=== PATIENT | female | born 1980 | race Caucasian/White ===

== ENCOUNTER → 2017-12-13 14:30 | Outpatient (CLI) | payer OTHER, SELFPAY ==
[2017-12-15 14:38] LABS: HPV Reflexed? NOT INDICATED
== END ==
PROVIDERS: Visit Provider Obstetrics & Gynecology
DX: Z12.4 Encounter for screening for malignant neoplasm of cervix (principal)
CPT/HCPCS: 88175; G0145

== ENCOUNTER → 2018-02-13 09:09 | Outpatient (CLI) | payer OTHER, SELFPAY ==
[2018-01-10 04:06] LABS: Red Blood Count 4.98 M/mm3 (4.2-5.4)
[2018-01-10 04:07] LABS: Hematocrit 37.9 % (37-47); Hemoglobin 11.7 g/dl (12.0-15.0); Mean Corp Hgb Conc 30.9 g/gl (32-36); Mean Corpuscular Hgb 23.5 pg (27.0-32.0); Mean Corpuscular Volume 76.1 fL (81-99); Mean Platelet Vol. 10.5 fl (6.2-12.0); Platelet Count 332 K/mm3 (150-450); RBC Distribution Width CV 15.6 % (11.6-14.6); RBC Distribution Width SD 43.7 fl (35.1-43.9); Scan Indicated on CBC? Y/N NO
[2018-01-10 04:08] LABS: White Blood Count 5.8 K/mm3 (4.4-11.0)
[2018-01-10 06:16] LABS: Creatinine, Serum 0.71 mg/dL (0.55-1.02); EST Glomerular Filtration Rate 99 mL/min (>60); Est Glom Filt Rate - Afr Amer 120 mL/min (>60)
[2018-01-10 06:18] LABS: Pregnancy, Serum, hCG Quali. NEGATIVE Negative (0-9 Nonpreg)
[2018-01-10 06:26] LABS: Prothrombin Time (Protime)PT. 12.7 SECONDS (11.7-14.9)
== END ==
PROVIDERS: Family Provider Family Medicine; PCP Family Medicine; Visit Provider Obstetrics & Gynecology
DX: Z01.818 Encounter for other preprocedural examination (principal)
CPT/HCPCS: 36415; 82565; 84703; 85027; 85610; 85730; 86850; 86900

== ENCOUNTER 2021-09-21 07:25 | Day surgery (SDC) | payer OTHER, SELFPAY ==
--- NOTE | 2021-09-16 09:19 | EKG12_ITS ---
Test Reason : PRE OP Blood Pressure : / mmHG Vent. Rate : 094 BPM Atrial Rate : 094 BPM P-R Int : 136 ms QRS Dur : 090 ms QT Int : 338 ms P-R-T Axes : 038 062 039 degrees QTc Int : 422 ms Normal sinus rhythm Normal ECG Confirmed by ROSSY LEYVA, MICHELE ([id number]), film editor supervisor ANDRÉS ESPINAL ([id number]) on 09/17/2021 9:10:03 AM Referred By: Omar Danielle Confirmed By:MICHELE BLAIR MD
[2021-09-16 10:32] LABS: Hematocrit 32.9 % (37-47); Hemoglobin 9.1 g/dL (12.0-15.0); Mean Corp Hgb Conc 27.7 g/dL (32-36); Mean Corpuscular Hgb 16.9 pg (27.0-32.0); Mean Corpuscular Volume 61.3 fL (81-99); Mean Platelet Vol. 10.2 fl (6.2-12.0); POSITIVE MORPHOLOGY YES; Platelet Count 362 K/mm3 (150-450); RBC Distribution Width CV 20.4 % (11.6-14.6); RBC Distribution Width SD 42.1 fl (35.1-43.9); Red Blood Count 5.37 M/mm3 (4.2-5.4); White Blood Count 7.5 K/mm3 (4.4-11.0)
[2021-09-16 10:40] LABS: Partial Thromboplast Time 25.7 Seconds (24.1-36.2); Prothrombin Time (Protime)PT. 12.2 SECONDS (11.7-14.9)
[2021-09-16 11:04] LABS: Scan Indicated on CBC? Y/N YES- FLAGS NOTED
[2021-09-16 11:05] LABS: Differential Comment SCANNED
[2021-09-16 11:32] LABS: Internal QC Validated? YES +Cl - CLEAR BKGD; Pregnancy, Serum, hCG Quali. NEGATIVE Negative
[2021-09-16 11:40] LABS: Thyroid Stim Hormone (TSH) 0.96 uIU/mL (0.358-3.74)
--- NOTE | 2021-09-20 17:25 | HP.PCM_ITS ---
History and Physical Date of Admission: 09/21/21 Surgical History and Physical Berenice Wang, a 41 year old female 3 0 1 0 3, presents for L/S Nacho salpingectomy, D and C, Dx H/S, HTA on September 21, 2020 . -- Desires Permanent Sterilization, Menorrhagia -- She has considered permanent sterilization for quite some time. Heavy menses. EMBx OK and u/s shows no polyps or fibroids. MEDICATIONS HISTORY: Patient is also takin. Zantac 150 mg tablet, 1 PO BID 2. buspirone 10 mg tablet, One tab at onset of anxiety prn ALLERGIES: morphine, Itching and vomiting, Codeine, Vomiting, Demerol, Vomiting, Codeine, Vomiting, Morphine, Itching and non-specific Infections - Chicken pox Illnesses - ENDOMETRIOSIS Accidents - no injuries of consequence Hospitalizations - Childbirth and see surgery Review of Systems: GENERAL - Denies fever, or chills SKIN - Denies skin changes EYES - Denies visual changes EARS - Denies difficulty hearing NOSE - Denies nasal congestion or bleeding MOUTH - Denies sore throat or difficulty swallowing NECK - Denies pain or swelling RESPIRATORY - Denies shortness of breath or wheezing CARDIOVASCULAR - Denies palpitations or chest pain GASTROINTESTINAL - Denies nausea, vomiting, diarrhea, constipation GENITOURINARY - Denies dysuria, frequency of urination, incontinence of urine MUSCULOSKELETAL - Denies joint or muscle pain NEUROLOGICAL - Denies localized numbness or weakness PSYCHIATRIC - Denies depression or anxiety ENDOCRINE - Denies heat or cold intolerance, weight loss or gain HEMATO-IMMUNOLOGIC - Denies excesive bleeding with cuts SOCIAL HISTORY: Alcohol Use - denies drinking Smoking - 2-4 cigarettes daily (ATQ) Diet - balanced Diet Lifestyle - moderate stress lifestyle and Exercise - minimal Seat Belt Use - always Employer - [place] [employer] Job Description - [place] [employer] Illicit Drug Use - uses marijuana Sexual Activity - Spouse-Sig Other Name - Margot Wang Spouse-Sig Other Occupation - [employer] Spouse-Sig Other Phone No - [phone] Children Name(s) - Adriana Stapleton, Gissel Wang, Jovoncody Quesada, Step daughter-Keisha Wang Control - Prior Tubal FAMILY HISTORY: Family history of DM II. Paternal history of PGM--Ovarian CA. Mother: mini strokes, hypercholesterolemia. MENSTRUAL HISTORY: LMP Known?- DefiniteAmount/Duration - 5 days, Regularity - Regular, Frequency - monthly days, LMP - 08/21/21, Age Onset Menarche - 12 PAST PREGNANCIES: Total Pregnancies - 4; Full Term Pregnancies - 3; Premature - 0; Abortions, Induced - 0; Abortions, Spontaneous - 1; Ectopics - 0; Multiple Births - 0; Living Children - 3 SURGICAL HISTORY: 1. Tonsils, age 6 ; - 2. 04/11/2009 ; - Prior 3. 05/11/2006 Primary C/S ; - Elevated BP 4. 03/03/2011 ; Omar Danielle M.D. - Prior , BTO PHYSICAL EXAM BP- 130/90 Sitting, Left arm, large cuff Weight- 199.14778 lbs Height- 63 inch BMI:35.43 CONSTITUTIONAL - NAD, well nourished, and well developed SKIN - No rash, lesions, or ulcers HEENT - Normocephalic, PERRLA, EOMI NECK - No nodes, no nuchal rigidity and thyroid normal size and texture LYMPH NODES - Palpation of lymph nodes in neck and groins within normal limits LUNGS - CTA x2 without wheezes, crackles or rales CARDIAC - Regular rate and rhythm without rubs, murmurs, or gallops BREAST - No dominant masses, no tenderness, no axillary adenopathy, no nipple discharge, no skin changes ABDOMEN - Without hepatosplenomegaly, distention, masses, rebound, or guarding; normal bowel sounds; no hernias EXTREMITIES - No edema or calf tenderness NEUROLOGICAL - Cranial nerves II-XII grossly intact PSYCHIATRIC - A and O to time, place, person, mood and affect External Genitial Vagina - non-tender without lesions Urethra/Urethral Meatus - non-tender Bladder - non-tender Vagina - vaginal aviles are pink and moist without loss of rugae and no evidence of atropy Cervix - without cervical motion tenderness and has normal size and features without evident lesions Uterus - enlarged uterus 8 wks, wt 125-150 g Adnexa - clear without massess or tenderness ASSESSMENT/PLAN: Premenopausal Menorrhagia; Desires Permanent Sterilization Patient desires proceeding with a diagnostic laparoscopy, bilateral salpingectomy to remove Filshie clips as this may be causing some pain, and proceeding with an endometrial ablation. Plan proceeding with a diagnostic laparoscopy, bilateral salpingectomy, diagnostic hysteroscopy, dilation and curettage, hydrothermal ablation. Discussed risk, benefits, and alternatives.
[2021-09-21] VITALS (9 sets, daily range): BP systolic 103–157; BP diastolic 76–85; PULSE 70–95; RESP 14–18; TEMP 36.2–37; O2SAT 89–100; BMI 35.5
--- NOTE | 2021-09-21 | FALS_PTH ---
PATIENT: EDIN MORALES [place] [facility] [id number] AGE/SX: 41/F ROOM: RE09/21/[address]: Dr. Omar Danielle MD : [id number] BED: DIS: 09/21/2021 SPEC #: [id number] RECD: 09/21/21 13:50 STATUS: WILLIAM INFANTE #: [id number] ED: 09/21/21 00:[address]: Omar Danielle DEPT: SURGICAL PATHOLOGY RECD BY: Kimani Anthony ENTERED: 09/21/21 13:51 SP TYPE: FALL TUBES OTHR DR: MD Dr. Keiko Purvis MD Tissues: A - Endometrium, NOS B - Fallopian tube Procedures: Surgery Specimen Level II Surgery Specimen Level IV HEADER OPERATION: Laparoscopic salpingectomy PRE-OP DIAGNOSIS: Sterilization, menorrhagia TISSUE SUBMITTED: A ? Endometrial curettings, B ? Bilateral fallopian tubes MICROSCOPIC DIAGNOSIS A. Endometrial curettings: Secretory endometrium. Fragments of myometrium. Fragments of benign ectocervical epithelium. B. Bilateral fallopian tubes, salpingectomy: Bilateral fallopian tubes, no pathologic diagnosis. A paratubal cyst. RICKEY:[email or web address] 09/22/2021 MICROSCOPIC DESCRIPTION Slides are reviewed. GROSS DESCRIPTION A - Received in fixative is one container labeled with the patient's name and designated endometrial curettings. The specimen consists of multiple fragments of lozoya-pink to hemorrhagic soft tissue that in aggregate measure 5 x 3 x 0.6 cm. The specimen is totally submitted in four cassettes. B - Received in fixative is one container labeled with the patient's name and designated bilateral fallopian tubes. The specimen consists of bilateral fallopian tubes including fimbrial ends. One of the fallopian tubes measure 9 cm in length and 0.5 cm in diameter. The second fallopian tube is received in multiple pieces. The two tubular segments measure in aggregate 7.5 cm in length and 0.5 cm in diameter. Two pieces of fimbrial end are also noted measuring in aggregate 2.5 x 1.5 x 0.5 cm. A paratubal cyst is also noted measuring 0.6 cm in greatest dimension. Two detached Filshie clips are also present in the container which appear intact. The fallopian tubes are not identified as right or left. Sections reveal unremarkable cut surfaces. P[employer] Trimmer sections are submitted in two cassettes as follows: 1 ? intact fallopian tube, 2 ? fallopian tube received in multiple pieces and paratubal cyst. / RICKEY:[email or web address] 09/21/2021 TC:3 CPT: 05128, 90913 x2
[2021-09-21] MEDS: Lactated Ringers 1,000 ML 100 ML IV (07:57)
[2021-09-21 08:07] LABS: Internal QC Validated? YES +Cl - CLEAR BKGD; Pregnancy, Urine Negative Negative
[2021-09-21] MEDS: Ropivacaine 0.5% 30 ML Vial (08:24)
[2021-09-21] MEDS: Cefotetan 2 GM in 0.9% NS 100 ML IV (08:52)
--- NOTE | 2021-09-21 08:57 | OP.PCM_ITS ---
Report of Operation Date of Procedure: 09/21/21 Pre-Operative Diagnosis: Desires Permanent Sterilization; Menorrhagia Post-Operative Diagnosis: Desires Permanent Sterilization; Menorrhagia Surgery/Procedure Performed:: Diagnostic Hysteroscopy, Dilation and Curettage, Hydrothermal Ablation, Diagnostic Laparoscopy, Bilateral Salpingectomy Description of Surgical Findings:: 10 cm endometrial cavity without polyps or fibroids present but copious amount of endometrial tissue present. Cervix high in vagina. Pelvis with evidence of prior tubal ligation with Filshie clips. Uterus is densely adhered to the anterior abdominal wall and omental adhesions just below the umbilicus present which were divided with the Enseal device. Adhesions between the ovaries tubes and pelvic sidewalls. Hysterectomy via robot would be feasible if this were ever necessary. Surgeon: Omar Danielle hospital housekeeper: Erika Stoner Type of Anesthesia: General (Endotracheal) Anesthesiologist: Lyn Walter Specimen's removed: Endometrial curettings, bilateral fallopian tubes and Filshie clips Estimated Blood Loss (mL): Minimal Fluids Replaced: Crystalloid Description of Procedure: Surgeon: Omar Danielle MD, FACOG Indications: This is a 41 year old patient who has the above diagnosis. She had a prior tubal ligation done but is been having some discomfort. She thinks it may be from the Filshie clips. She also has extremely heavy periods and conservative measures have not been helpful. She is aware that this procedure may not relieve the bleeding problems that she has been having and it may not help with pelvic pain issues. All questions were answered to consider the patient well-informed. Procedure: The patient was taken to the operating room where after induction of general anesthesia, she was placed in the dorsolithotomy position and prepped and draped in the usual sterile fashion. The bladder was drained of approximately 50 cc of clear yellow urine with a catheter. Anterior cervix grasped and cervix was dilated to about 17 [place] size. Hysteroscopic hydrothermal ablation (HTA) unit was place in the cervix and the above findings were noted. HTA unit was removed and the uterus was gently curretted removing all contents. An HTA ablation cycle was then carried out at about 90 degrees Centigrade for 10 minutes with virtually no fluid loss during the procedure. After an appropriate cool down the HTA unit was removed with minimal bleeding noted. Attention was turned toward the laparoscopic portion of the procedure after placing a Conn cannula in the cervix. Approximately 20 cc of half percent ropivacaine was injected subumbilically and approximately 10 cm to the right and left of the umbilicus. A 5 mm bladeless trocar was placed subumbilically and intraperitoneal placement confirmed. After CO2 insufflation was complete, a 5 mm bladeless trocar was introduced approximately 10 cm to the right and left of the umbilicus. The above findings were noted. The omental adhesion just below the subumbilical port was divided with the Enseal device. Each fallopian tube was identified to its fimbriated end and an Enseal device was used to divide the mesosalpinx and adhesions to the uterus. Tubes were removed through the left and subumbilical 5 mm port. The peritoneal cavity and upper abdomen were examined and noted to be normal. Photographs were taken. Laparoscopic instruments with as much CO2 gas as possible were removed and incisions were closed with interrupted 4-0 Monocryl suture. Steri-Strips placed across the incision. Vaginal instruments were removed. The patient tolerated the procedure well was taken to recovery room in satisfactory condition and sponge instrument and needle counts were all reportedly correct. Estimated blood loss for the case was minimal. There were no apparent complications of the surgery. Specimens to pathology was bilateral tubes and endometrial curettings Grafts/Implants Used: None Complications None Admit VTE Documentation VTE Present on Admission: Yes VTE Mechan Device Prophylaxis: SCD's
--- NOTE | 2021-09-21 10:34 | PCM.DC ---
Discharge Instructions Diet Discharge Diet: No restrictions Activity Discharge Activity: Return to Normal Activity, May Shower and May Take a Tub Bath May resume sexual activity in: 3 weeks Additional Activity Instructions:: Nothing in the vagina for 3-4 weeks please. Use Ibuprophen 800 mg orally every 8 hours as needed for pain. Can also add Tylenol 1000 mg every 8 hours if needed for pain. If Ibuprophen and Tylenol are not effective then use the Oxycodone but keep in mind it can cause serious constipation issues. Drink lots of water. Call if bleeding more than a pad per hour. Clear to brownish discharge will last for about 3 weeks. It is okay to immediately shower or take a bath. Dressing / Incision Call your doctor if you observe: Fever of 101 or Higher, Inability to urinate, Inability to have a bowel movement and Using more than 1 pad per hour Remove Dressing in: leave until fall off (If the Steri-Strips fall off and it is bothersome it is okay to place a Band-Aid across the small incisions for comfort.) Cleanse incision/area with: Soap & Water Follow Up Care Please Follow Up With: Omar Danielle MD When: 3 to 4 weeks Test Results: Test results from this visit will be discussed in further detail at your follow-up appointment, if applicable. Discharge Plan Admission Primary Reason for Your Visit: Endometrial Ablation and Tube Removal Attending Provider: Omar Danielle Primary Care Provider: Keiko Mancia Consulting Providers: Allen Diana Discharge Orders/Prescriptions Prescriptions: New oxycodone 5 mg capsule 5 mg PO Q6H PRN (Reason: pain (scale score 7-10)) 7 Days Qty: 7 RF: 0 Continued buspirone 5 MG tablet 5 mg PO TID PRN (Reason: Anxiety) RF: 0 omeprazole 20 MG capsule 20 mg PO BID RF: 0 Zyrtec 10 MG capsule 10 mg PO DAILY RF: 0 Other Ambulatory Orders: 12 Lead EKG (Routine) Timeframe: [id number] Location: None Selected Ordered By: Dr. Allen Diana Referrals / Follow Up: Keiko Mancia MD [Primary Care Provider] - Disposition Disposition (needs filled in before D/C Order can be placed): Home, Self Care
[2021-09-21] MEDS: oxyCODONE 5 MG Tablet PO (12:30)
== END 2021-09-21 23:59 | disposition home or self-care (01) ==
LOC: SDC 07:25 → AC 07:25
PROVIDERS: Anesthesiology; PCP Family Medicine; Referring Provider Obstetrics & Gynecology; Visit Provider Obstetrics & Gynecology
PROC: (CPT 58661; principal; 2021-09-21 08:30)
PROC: 0U5B8ZZ Destruction of Endometrium, Via Natural or Artificial Opening Endoscopic (ICD-10-PCS; CPT 58563; 2021-09-21 08:30)
DX: Z30.2 Encounter for sterilization (principal); F17.210 Nicotine dependence, cigarettes, uncomplicated; N92.4 Excessive bleeding in the premenopausal period; J45.909 Unspecified asthma, uncomplicated; G25.81 Restless legs syndrome; F32.A Depression, unspecified; K21.9 Gastro-esophageal reflux disease without esophagitis; F41.9 Anxiety disorder, unspecified; Z79.899 Other long term (current) drug therapy; I10 Essential (primary) hypertension
CPT/HCPCS: 58353; 58700; 00940; 36415; 81025; 84443; 84703; 85027; 85610; 85730; 86850; 86900; 86901; 87426; 88302; 88305; 93005; C9803; J7120; C1760; J2405